=== PATIENT | male | born 1995 | race Caucasian/White ===

== ENCOUNTER 2017-12-26 20:32 | Emergency (ER) | payer OTHER ==
[2017-12-26 20:54] VITALS: BP 126/81; PULSE 68; TEMP 98.2; O2SAT 100
[2017-12-26] MEDS ORDERED: Bacitracin 500 Units/gm Oint Foilpak UD ONE (21:18)
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
[2017-12-26 21:56] VITALS: RESP 20
== END 2017-12-26 21:43 | disposition home or self-care (01) ==
LOC: C.ER 20:32
DX: T25.221A Burn of second degree of right foot, initial encounter (principal); X12.XXXA Contact with other hot fluids, initial encounter